=== PATIENT | female | born 1980 | race Caucasian/White ===

== ENCOUNTER 2019-12-08 19:53 | Emergency (ER) | payer SELFPAY ==
[~2019-12-08] VITALS: Ht 157.5 cm; Wt 81.6 kg
[2019-12-08 20:14] VITALS: BP_SYST 130
--- NOTE | 2019-12-08 20:53 | NUR ---
Pt bib ems and law enforcement for medical clearance. Per EMS pt was screaming and rolling around on the floor. A&O x 3. +etoh. Denies n/v/d or fever. Will cont. to monitor.
--- NOTE | 2019-12-08 20:53 | NUR ---
Patient to ER bed 5 to gown for evaluation. Side rails up. Report given to CHULA DUQUE.
--- NOTE | 2019-12-08 21:15 | NUR ---
CALM, ALERT, RESP UNLABORED, SKIN WARM AND DRY. COMMUNICATES CLEARLY IN FULL COMPLETE SENTENCES/[facility] ONLY. DENIES CP/SOB. AMBULATES STEADY
--- NOTE | 2019-12-08 21:25 | NUR ---
DR ROBLES IN TO ASSESS
--- NOTE | 2019-12-08 21:54 | NUR ---
LABS SENT, BLOOD /URINE. AT BEDSIDE. PT CALM, COOPERATIVE, NAD. RESP UNLABORED, SKIN WARM AND DRY
[2019-12-08 22:11] LABS: BARBITURATE, URINE NEGATIVE (NEG <=200); BENZODIAZEPINE, URINE NEGATIVE (NEG <=150); CANNABINOID, URINE NEGATIVE (NEG <=50); COCAINE, URINE NEGATIVE (NEG <=150); METHAMPHETAMINES SCREEN,URINE NEGATIVE (NEG <=500); PHENCYCLIDINE SCREEN,URINE NEGATIVE (NEG <=25); URINE AMPHETAMINE NEGATIVE (NEG <=500); URINE METHADONE NEGATIVE (NEG <=200)
[2019-12-08 22:12] LABS: OPIATE, URINE NEGATIVE (NEG <=100); UR TRICYCLIC ANTIDEPRESSANTS NEGATIVE (NEG <=300); URINE OXYCODONE SCREEN NEGATIVE (NEG <=100); URINE PROPOXYPHENE SCREEN NEGATIVE (NEG <=300)
[2019-12-08 22:14] LABS: BASOPHILS % (AUTO) 0.3 % (0.0-2.0); EOSINOPHILS % (AUTO) 0.3 % (0.0-4.0); HEMATOCRIT 46.8 % (36-48); LYMPHOCYTES # (AUTO) 2.9 K/uL (1.0-5.5); LYMPHOCYTES % (AUTO) 26.8 % (20.5-51.5); MEAN CORPUSCULAR HEMOGLOBIN 29 pg (27-31); MEAN CORPUSCULAR HGB CONC 34 % (32-36); MEAN CORPUSCULAR VOLUME 84 fL (79.0-98.0); MONOCYTES # (AUTO) 0.6 K/uL (0.0-1.0); NEUTROPHILS # (AUTO) 7.2 K/uL (1.8-7.7); NEUTROPHILS % (AUTO) 66.6 % (40.0-70.0); PLATELET COUNT (AUTO) 356 K/uL (130-430); RED BLOOD CELL COUNT(AUTO) 5.57 MIL/uL (4.2-6.2); RED CELL DISTRIBUTION WIDTH 12.9 % (9.0-15.0); WHITE BLOOD COUNT (AUTO) 10.8 K/uL (4.8-10.8)
[2019-12-08 22:15] LABS: CREATININE 0.87 mg/dL (0.55-1.30); POTASSIUM 3.8 mmol/L (3.5-5.1)
[2019-12-08 22:37] LABS: TOTAL BILIRUBIN 0.4 mg/dL (0.0-1.0)
--- NOTE | 2019-12-08 23:20 | NUR ---
EKG IN PROGRESS, PT CALM, ALERT, RESP UNLABORED, NO DISTRESS. NO CHANGE IN MENTATION
[2019-12-08] MEDS ORDERED: METOCLOPRAMIDE HCL 10 MG/2 ML VIAL IM ONE (23:30)
[2019-12-08] MEDS ORDERED: KETOROLAC TROMETHAMINE 60 MG/2 ML VIAL IM ONE (23:30)
[2019-12-08 23:36] VITALS: BP_SYST 130
== END 2019-12-08 23:36 ==
LOC: SED 19:53
DX: R55 Syncope and collapse (principal); R51 Headache; F10.929 Alcohol use, unspecified with intoxication, unspecified
CPT/HCPCS: 36415; 80053; 80307; 82550; 84702; 85025; 93005; 96372; 99284; G0482; J1885; J2765